=== PATIENT | male | born 2000 | race Caucasian/White ===

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

== ENCOUNTER 2020-05-27 12:24 | Emergency (ER) | payer MEDICAID ==
[2020-05-27 12:33] VITALS: BP 134/80
--- NOTE | 2020-05-27 13:30 | ED Physician Documentation ---
PD HPI HEENT - Stated complaint Stated Complaint: BILAT EAR PX, VOMITING - Chief complaint Chief Complaint: Heent - History obtained from History obtained from: Patient - History of Present Illness Location: Right ear, Left ear Improves: Nothing Associated symptoms: Swollen nodes, Headache. No: Fever, Congestion, Rhinorrhea, Trismus, Unable to swallow, Facial swelling, Cough - Additional information Additional information: Pt presents with pain in both earlobes R>L. He had his ears pierced in [place] several weeks ago. Has been cleaning them as instructed w/ saline. Both ears had a lot of drainage from them. Now right ear lob is tender and swollen and the tenderness is extending into the right side of the neck. [place] a little chilled and is having bodyaches. No known fever. NO vomiting or other flu like sx. Hasn't taken any medication for this. Review of Systems Constitutional: reports: Chills, Myalgias. denies: Fever, Fatigue Ears: reports: Ear pain, Other (pain around earrings). denies: Loss of hearing, Drainage/discharge, Tinnitus/ringing Cardiac: reports: Reviewed and negative Respiratory: reports: Reviewed and negative GI: reports: Reviewed and negative : reports: Reviewed and negative Musculoskeletal: reports: Reviewed and negative PD PAST MEDICAL HISTORY - Past Medical History Cardiovascular: None Respiratory: None GI: None Musculoskeletal: Rheumatoid arthritis, Chronic back pain - Past Surgical History Past Surgical History: No - Present Medications Home Medications: Ambulatory Orders Medication Instructions Recorded Confirmed Lidocaine Viscous 2% [Xylocaine 5 ml PO Q4H PRN #1 bottle 10/08/17 Viscous 2%] Ondansetron Odt [Zofran] 4 mg TL Q6H PRN #15 tablet 10/08/17 Sucralfate 1 gm PO QID #40 tablet 10/08/17 Tramadol HCl 50 mg PO Q6H PRN #20 tablet 10/08/17 Omeprazole 20 mg PO DAILY #30 capsule. 04/18/19 Ondansetron Odt [Zofran] 4 mg TL Q6H PRN #10 tablet 04/18/19 Sucralfate [Carafate] 1 gm PO BID #60 tablet 04/18/19 raNITIdine HCl [Acid Control] 150 mg PO BID #30 tablet 04/18/19 Doxycycline Hyclate 100 mg PO BID #14 capsule 04/19/19 Cephalexin [Keflex] 500 mg PO Q6H #28 capsule 05/27/20 - Allergies Allergies/Adverse Reactions: Allergies Allergy/AdvReac Type Severity Reaction Status Date / Time No Known Drug Allergies Allergy Verified 04/19/19 14:01 - Social History Does the pt smoke?: No Smoking Status: Never smoker Does the pt drink ETOH?: No Does the pt have substance abuse?: No - Immunizations Immunizations are current?: Yes - POLST Patient has POLST: No PD ED PE NORMAL - Vitals Vital signs reviewed: Yes - General General: Alert and oriented X 3, No acute distress, Well developed/nourished - HEENT HEENT: Atraumatic, Moist mucous membranes, Pharynx benign, Other (Normal TMs and canals bilaterally, left earlobe pierced, no redness or swelling. non -tender. right earlobe pieced, lobe is tender, reddened. there is slight redness extending into the right neck. no mastoid tenderness or swelling. ) - Neck Neck: Supple, no meningeal sign, No bony TTP, No adenopathy, No JVD - Cardiac Cardiac: RRR, No murmur, No gallop, No rub - Respiratory Respiratory: No respiratory distress, Clear bilaterally - Abdomen Abdomen: Normal bowel sounds - Derm Derm: Normal color, Warm and dry, No rash - Neuro Neuro: Alert and oriented X 3 Eye Opening: Spontaneous Motor: Obeys Commands Verbal: Oriented GCS Score: 15 - Psych Psych: Normal mood, Normal affect Results - Vitals Vitals: Vital Signs - 24 hr 05/27/20 12:31 Temperature 36.9 C Heart Rate 100 Respiratory 16 Rate Blood Pressure 134/80 H O2 Saturation 98 Oxygen O2 Source Room air PD MEDICAL DECISION MAKING - ED course Complexity details: d/w patient ED course: Pt presents with pain and drainage around both earlobe piercings. The right earlobe does appear infected and there is a small amount of redness extending into the neck. I advised pt that he needed to remove the earring and I will place him on Keflex for infection. He should continue to keep the site clean w/ soap and water and may apply a cool compress to the site. I have also recommended he remove the left earring given his description of drainage though it appears okay today on exam. He is to return if he develops fever, spreading erythema, or worsening symptoms despite abx use. Departure - Departure Disposition: 01 Home, Self Care Clinical Impression: Infected pierced ear Qualifiers: Encounter type: initial encounter Laterality: right Qualified Code(s): S01.331A - Puncture wound without foreign body of right ear, initial encounter Condition: Good Prescriptions: Cephalexin [Keflex] 500 mg PO Q6H #28 capsule Comments: Please have your right earring removed. Continue cleaning with saline until healed. Return to the ER if you develop fever or worsening symptoms. Discharge Date/Time: 05/27/20 13:45
== END 2020-05-27 13:45 | disposition home or self-care (01) ==
LOC: ED 12:24
DX: L08.9 Local infection of the skin and subcutaneous tissue, unspecified (principal); S01.331A Puncture wound without foreign body of right ear, initial encounter; X58.XXXA Exposure to other specified factors, initial encounter
CPT/HCPCS: 99282; 99284